=== PATIENT | male | born 1990 | race Caucasian/White ===

== ENCOUNTER 2021-01-27 11:52 | Emergency (ER) | payer OTHER ==
[~2021-01-27] VITALS: Ht 177.8 cm; Wt 82.0 kg
[2021-01-27] MEDS ORDERED: BACITRACIN ZINC OINT UDPKT TOP ONE (12:45)
[2021-01-27] MEDS ORDERED: HYDROCODONE/ACETAMINOPHEN 5/325MG TABLET PO ONE (12:45)
[2021-01-27] MEDS ORDERED: TETANUS, DIPHTHERIA, PERTUSSIS VAC/PF 0.5ML (>7YR OLD) IM ONE (12:45)
[2021-01-27] MEDS ORDERED: LIDOCAINE HCL/PF 1% 10 MG/ML 5ML VIAL IJ ONE (12:45)
[2021-01-27] MEDS ORDERED: IBUP-2028 MT (15:02)
[2021-01-27] MEDS ORDERED: HYDR-4001 MT (15:02)
[2021-01-27 15:59] VITALS: BP 133/82
[2021-01-27] MEDS ORDERED: CEPH500C2 MT (18:17)
== END 2021-01-27 17:00 | disposition home or self-care (01) ==
LOC: ER 11:52
DX: S68.123A Partial traumatic metacarpophalangeal amputation of left middle finger, initial encounter (principal); W29.8XXA Contact with other powered hand tools and household machinery, initial encounter; Y93.89 Activity, other specified; Y92.89 Other specified places as the place of occurrence of the external cause; Y99.0 Civilian activity done for income or pay; Z23 Encounter for immunization
CPT/HCPCS: 12002; 73130; 90471; 90715; 99283; J3490